=== PATIENT | female | born 1965 | race Caucasian/White ===

== ENCOUNTER 2017-11-08 10:22 | Emergency (ER) | payer MEDICARE, OTHER ==
[~2017-11-08] VITALS: Ht 165.1 cm; Wt 101.7 kg
[~2017-11-08 10:22] MED LIST: ATOR10TA PO; CYCL5TAB PO; FURO20TA3 PO; GABA-826 PO; GLYB1.252 PO; LISI2.5T PO; METF10002 PO; METO25TA35 PO; OXYC-302 PO; SERT100T5 PO; TRAZ100T15 PO
[2017-11-08 11:39] LABS: BASOPHILS # (AUTO) 0.04 x10^3/uL (0-0.1); BASOPHILS % (AUTO) 1 % (0-1); EOSINOPHILS # (AUTO) 0.32 x10^3/uL (0-0.4); EOSINOPHILS % (AUTO) 4 % (1-7); LYMPHOCYTES # (AUTO) 2.41 x10^3/uL (1-3.4); LYMPHOCYTES % (AUTO) 31 % (22-44); MD NO; MEAN CORPUSCULAR HEMOGLOBIN 29.7 pg (27.0-34.8); MEAN CORPUSCULAR HGB CONC 33.7 g/dL (32.4-35.8); MEAN CORPUSCULAR VOLUME 88.1 fL (80-100); MEAN PLATELET VOLUME 7.8 fL (7.4-10.4); MONOCYTES % (AUTO) 7 % (2-9); NEUTROPHILS # (AUTO) 4.42 x10^3/uL (1.8-6.8); NEUTROPHILS % (AUTO) 58 % (42-75); PLATELET COUNT 245 x10^3/uL (130-400); RED CELL DISTRIBUTION WIDTH 14.8 % (9.6-15.2)
[2017-11-08 11:40] LABS: ALBUMIN 3.9 g/dL (3.4-5.0); ANION GAP 9 mmol/L (5-15); CALCIUM 9.2 mg/dL (8.5-10.1); CHLORIDE 100 mmol/L (98-107); CREATININE 0.86 mg/dL (0.55-1.02)
[2017-11-08 11:44] LABS: TROPONIN I < 0.015 ng/mL (0.000-0.045)
[2017-11-08] MEDS ORDERED: DIPHENHYDRAMINE 50 MG CAPSULE PO PRN (14:30)
[2017-11-08] MEDS ORDERED: METOCLOPRAMIDE 10MG TABLET PO SCH (14:30)
[2017-11-08] MEDS ORDERED: DIPHENHYDRAMINE 50 MG CAPSULE ONE (14:33)
[2017-11-08 15:24] VITALS: BP 134/72
== END 2017-11-08 15:26 | disposition home or self-care (01) ==
LOC: ED 14:34
DX: I10 Essential (primary) hypertension (principal); R51 Headache; R10.9 Unspecified abdominal pain; M19.90 Unspecified osteoarthritis, unspecified site; E11.9 Type 2 diabetes mellitus without complications
CPT/HCPCS: 36415; 70450; 71045; 80048; 82040; 84484; 85025; 93005; 99285

== ENCOUNTER 2020-10-06 06:45 | Outpatient (CLI) | payer BC, MEDICARE ==
[~2020-10-06 06:45] MED LIST changes: -OXYC-302 PO; +OXYC1TAB14 PO; +SERT100T32 PO; -SERT100T5 PO; +TRAZ-175 PO; -TRAZ100T15 PO
== END 2020-10-06 23:59 | disposition home or self-care (01) ==
LOC: CFH 06:45
PROVIDERS: ATTEND Family Medicine
DX: N28.1 Cyst of kidney, acquired (principal); R11.2 Nausea with vomiting, unspecified
CPT/HCPCS: 76700